=== PATIENT | female | born 1955 | race Caucasian/White ===

== ENCOUNTER 2019-05-01 12:10 | Emergency (ER) | payer OTHER ==
[2019-05-01 12:32] VITALS: TEMP 98.3; BMI 34.0
[2019-05-01] MEDS ORDERED: MAG HYDROX/AL HYDROX/SIMETH 30 ML UNIT-DOSE CUP PO ONE (12:49)
[2019-05-01] MEDS ORDERED: MAG HYDROX/AL HYDROX/SIMETH 30 ML UNIT-DOSE CUP ONE (12:52)
--- NOTE | 2019-05-01 13:02 | PDOC ---
History of Present Illness - General Chief Complaint: Pain Stated Complaint: RIGHT SIDED PAIN UNDER RIBS Time Seen by Provider: 05/01/19 12:17 - History of Present Illness Initial Comments: 05/01/19 13:02 63 F with h/o HTN presents to ED with R sided pain. Pt reports pain that started last night under her R ribcage. Denies CP/SOB. States that it felt like indigestion, but it did not respond to nexium. Pt denies N/V. Denies F/C. Denies CP/SOB. Denies flank pain or dysuria. has had prior cholecystectomy. Past History - Past Medical History Allergies/Adverse Reactions: Allergies Allergy/AdvReac Type Severity Reaction Status Date / Time No Known Allergies Allergy Unverified 05/01/19 12:13 Home Medications: Ambulatory Orders Irbesartan 150 mg PO DAILY 05/01/19 COPD: No HTN: Yes - Psycho Social/Smoking Cessation Hx Smoking History: Never smoked Information on smoking cessation initiated: No Hx Alcohol Use: No Drug/Substance Use Hx: No Review of Systems - Review of Systems Comments:: 05/01/19 13:05 "GENERAL/CONSTITUTIONAL: No fever or chills. No weakness. HEAD, EYES, EARS, NOSE AND THROAT: No change in vision. No ear pain or discharge. No sore throat. CARDIOVASCULAR: No chest pain, no shortness of breath, no loss of consciousness RESPIRATORY: No cough, wheezing, or hemoptysis. GASTROINTESTINAL: + R side pain, No nausea, vomiting, diarrhea or constipation. GENITOURINARY: No dysuria, frequency, or change in urination. MUSCULOSKELETAL: No joint or muscle swelling or pain. No neck or back pain. SKIN: No rash NEUROLOGIC: No vertigo, no change in strength/sensation. ENDOCRINE: No increased thirst. No abnormal weight change. HEMATOLOGIC/LYMPHATIC: No anemia, easy bleeding, or history of blood clots. ALLERGIC/IMMUNOLOGIC: No hives or skin allergy. *Physical Exam - Vital Signs Last Vital Signs Temp Pulse Resp BP Pulse Ox 98.3 F 85 16 193/94 H 97 05/01/19 12:11 05/01/19 12:11 05/01/19 12:11 05/01/19 12:11 05/01/19 12:11 - Physical Exam 05/01/19 13:05 "GENERAL: Awake, alert, and fully oriented, in no acute distress. HEAD: No signs of trauma EYES: PERRLA, EOMI, sclera anicteric, conjunctiva clear ENT: Auricles normal inspection, hearing grossly normal, nares patent, oropharynx clear without exudates. Moist mucosa NECK: Nontender, no stepoffs, Normal ROM, supple, no lymphadenopathy, JVD, or masses LUNGS: Breath sounds equal, clear to auscultation bilaterally. No wheezes, and no crackles HEART: Regular rate and rhythm, normal S1 and S2, no murmurs, rubs or gallops ABDOMEN: + mild TTP under R ribcage, Soft, normoactive bowel sounds. No guarding, no rebound. No masses EXTREMITIES: Normal range of motion, no edema. No clubbing or cyanosis. No cords, erythema, or tenderness NEUROLOGICAL: Cranial nerves II through XII intact. 5/5 strength and sensation in all extremities, Normal speech, normal gait, normal cerebellar function SKIN: Warm, Dry, normal turgor, no rashes or lesions noted. ED Treatment Course - LABORATORY CBC & Chemistry Diagram: 05/01/19 13:10 05/01/19 13:10 - RADIOLOGY Radiology Studies Ordered: Category Date Time Status CHEST PA & LAT [RAD] Stat Radiology 05/01/19 12:49 Ordered - Medications Given in the ED: ED Medications Discontinued Medications Generic Name Dose Route Start Last Admin Trade Name Freq PRN Reason Stop Dose Admin Al Hydroxide/Mg Hydroxide 30 ml 05/01/19 12:49 05/01/19 12:53 Mylanta Oral Suspension - PO 05/01/19 12:50 30 ml ONCE ONE Administration Medical Decision Making - Medical Decision Making 05/01/19 13:05 63 F with pain under R ribcage. Has has prior cholecystectomy. Possible gastritis/PUD. WIll r/o ACS, though pt without CP/SOB. Possible RLL lung process. Pt with completely benign abdomen. - Labs, UA - CXR - GI cocktail 05/01/19 13:16 UA with trace blood, will obtain CT to r/o kidney stone. Pt hypertensive in ED. She notes she did not take her BP meds today 05/01/19 14:36 CT unremarkable Pt reassessed - pain completely resolved Pt is well appearing, with normal vitals. Clinically stable for DC at this time. I discussed the physical exam findings, ancillary test results and final diagnoses with the patient. I answered all of the patient's questions. The patient was satisfied with the care received and felt comfortable with the discharge plan and treatment plan. The patient agrees to follow up with the primary care physician within 24-72 hours. Discharge - Discharge Information Problems reviewed: Yes Clinical Impression/Diagnosis: Flank pain Condition: Stable Disposition: HOME - Follow up/Referral Referrals: Jose Miguel Reynolds MD [Staff Physician] - - Patient Discharge Instructions Patient Printed Discharge Instructions: DI for Abdominal Pain-Adult Additional Instructions: Follow up with a GI doctor within 1 week for further evaluation of your abdominal pain. 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 This is not an emergency, but you should have your primary doctor monitor this. If you experience worsening pain, vomiting, fevers, or any other concerning symptoms, return to the ER immediately. You also need to have your blood pressure re-checked by your primary doctor, as it was slightly elevated today. Uncontrolled blood pressure can eventually lead to kidney disease, heart disease, other serious illness, disability, or even . - Post Discharge Activity
[2019-05-01] MEDS ORDERED: FAMOTIDINE 20 MG/50 ML IVPB 20 MG/50 ML MG IVPB ONE ×2 (13:12→13:15)
[2019-05-01 13:16] LABS: BASO % 0.6 % (0-2.0); EOS % 1.5 % (0-4.5); HEMATOCRIT 41.2 % (32.4-45.2); HEMOGLOBIN 13.9 GM/dl (10.7-15.3); LYMPH % 41.5 % (8-40); MCH 29.8 pg (25.7-33.7); MCHC 33.8 g/dl (32.0-36.0); MEAN CELL VOLUME 88.3 fl (80-96); MEAN PLT VOLUME 8.4 fl (7.5-11.1); NEUT % 50.4 % (42.8-82.8); PLATELET COUNT 317 K/MM3 (134-434); RBC 4.66 M/mm3 (3.60-5.2); RDW 12.5 % (11.6-15.6); WHITE BLOOD COUNT 6.8 K/mm3 (4.0-10.8)
[2019-05-01] MEDS ORDERED: VALSARTAN 80 MG TABLET PO ONE (13:17)
[2019-05-01 13:36] LABS: ALBUMIN 4.3 g/dl (3.4-5.0); BILIRUBIN,TOTAL 0.8 mg/dl (0.2-1); CREATININE 0.7 mg/dl (0.55-1.3); POTASSIUM 3.5 mmol/L (3.5-5.1); TOT PROT 7.7 g/dl (6.4-8.2)
[2019-05-01 13:52] LABS: EPITHELIAL CELLS RARE /hpf
[2019-05-01] MEDS ORDERED: KETOROLAC TROMETHAMINE 30 MG/1 ML VIAL IVPUSH ONE (13:58)
[2019-05-01] MEDS ORDERED: KETOROLAC TROMETHAMINE 30 MG/1 ML VIAL ONE (14:02)
[2019-05-01 14:49] VITALS: BP 185/87; PULSE 79
--- NOTE | 2019-05-02 13:11 | EKG ---
Test Reason : Blood Pressure : / mmHG Vent. Rate : 071 BPM Atrial Rate : 071 BPM P-R Int : 162 ms QRS Dur : 076 ms QT Int : 406 ms P-R-T Axes : 049 029 030 degrees QTc Int : 441 ms NORMAL SINUS RHYTHM NORMAL ECG NO PREVIOUS ECGS AVAILABLE Confirmed by MIKHAIL RENTERIA MD ([id number]) on 05/02/2019 1:11:04 PM Referred By: CARLIN VITAL Confirmed By:MIKHAIL RENTERIA MD
== END 2019-05-01 14:54 | disposition home or self-care (01) ==
LOC: FER 12:10
PROC: 3E033GC Introduction of Other Therapeutic Substance into Peripheral Vein, Percutaneous Approach (ICD-10-PCS; principal; 2019-05-01)
PROC: 3E0333Z Introduction of Anti-inflammatory into Peripheral Vein, Percutaneous Approach (ICD-10-PCS; 2019-05-01)
DX: R10.33 Periumbilical pain (principal); I10 Essential (primary) hypertension
CPT/HCPCS: 36415; 71046-TC-FY; 74176-TC; 80053; 81003; 81015; 82550; 82553; 83690; 84484; 85025; 87086; 93005; 99283-25

== ENCOUNTER 2020-03-27 20:05 | Emergency (ER) | payer OTHER ==
[2020-03-27 20:17] VITALS: BP 183/112; PULSE 89; TEMP 98.2; BMI 34.2
[2020-03-27] MEDS ORDERED: DEXTROSE 5%-NORMAL SALINE 1,000 ML IV ONE (20:49)
[2020-03-27] MEDS ORDERED: KETOROLAC TROMETHAMINE 30 MG/1 ML VIAL IVPUSH ONE (20:57)
[2020-03-27] MEDS ORDERED: DEXAMETHASONE SOD PHOSPHATE 10 MG/1 ML VIAL IVPUSH ONE (20:57)
[2020-03-27] MEDS ORDERED: CYCLOBENZAPRINE HCL 10 MG TABLET (FP) PO ONE (20:57)
[2020-03-27] MEDS ORDERED: KETOROLAC TROMETHAMINE 30 MG/1 ML VIAL ONE (21:00)
[2020-03-27] MEDS ORDERED: CYCLOBENZAPRINE HCL 10 MG TABLET (FP) ONE (21:00)
[2020-03-27] MEDS ORDERED: DEXAMETHASONE SOD PHOSPHATE 10 MG/1 ML VIAL ONE (21:00)
== END 2020-03-27 21:13 | disposition home or self-care (01) ==
LOC: FER 20:05
PROC: 3E0333Z Introduction of Anti-inflammatory into Peripheral Vein, Percutaneous Approach (ICD-10-PCS; principal; 2020-03-27)
PROC: 3E033GC Introduction of Other Therapeutic Substance into Peripheral Vein, Percutaneous Approach (ICD-10-PCS; 2020-03-27)
PROC: 3E0337Z Introduction of Electrolytic and Water Balance Substance into Peripheral Vein, Percutaneous Approach (ICD-10-PCS; 2020-03-27)
DX: M54.41 Lumbago with sciatica, right side (principal); M54.31 Sciatica, right side
CPT/HCPCS: 99285-25; J1100

== ENCOUNTER 2020-03-29 12:55 | Emergency (ER) | payer OTHER ==
[2020-03-29 13:23] VITALS: TEMP 98.6; BMI 32.1
[2020-03-29] MEDS ORDERED: KETOROLAC TROMETHAMINE 60 MG/2 ML VIAL ONE ×2 (13:32→13:41)
[2020-03-29] MEDS ORDERED: diazePAM 5 MG TABLET PO ONE (15:10)
[2020-03-29] MEDS ORDERED: diazePAM 5 MG TABLET ONE (15:11)
[2020-03-29 15:20] VITALS: BP 169/97; PULSE 92
== END 2020-03-29 15:32 | disposition home or self-care (01) ==
LOC: FER 12:55
DX: M48.061 Spinal stenosis, lumbar region without neurogenic claudication (principal); M47.816 Spondylosis without myelopathy or radiculopathy, lumbar region
CPT/HCPCS: 72131-TC; 99284-25